=== PATIENT | male | born 1965 | race Caucasian/White ===

== ENCOUNTER → 2018-04-02 | Outpatient (CLI) | payer OTHER ==
[~2018-04-02] MED LIST: AMOXIL 875 MG875 M1 PO; BP MED; DEPO-TESTO100 MG/1 M; FLOMAX0.4 MG PO; LISINOPRIL20 MG PO; PERCOCET 5-3251 EACH PO; ULTRAM 50MG TAB50 MG PO; ZOFRAN ODT4 MG PO
--- NOTE | 2018-04-11 22:51 | SLEEP ---
[address] [address] SLEEP STUDY REPORT Name: ANAMIKATATYANA Fernández [id number] Admission: 04/02/18 Attend Phys: Dyana Benítez DO Discharge: Date of : 63 Report #: [id number] THIS REPORT FOR: //name// CC: Dyana Benítez DO This study has been reviewed in its entirety by a board certified sleep specialist DATE OF SERVICE: 04/02/2018 HOME SLEEP STUDY The patient is a 52-year-old who weighs 220 pounds and is 70 inches tall with a BMI of 31.6. The patient's [place] score was 10. The patient underwent home sleep study performed at [facility]. Total recording time was 469 minutes. During the night study, the patient had 191 obstructive apneas, 1 central and no mixed apneas. There were 43 hypopneas. The patient's apnea-hypopnea index was 30 per hour. Supine index was also 30 per hour. Nocturnal oximetry study revealed an average oxygen saturation of 90%, the lowest of 74%. 153 minutes were spent in an oxygen saturation of less than 90% and another 53 minutes with oxygen saturation of less than 85%. Mean heart rate was 72 beats per minute with a maximum of 97 beats per minute. IMPRESSION: 1. Severe sleep apnea-hypopnea syndrome at an AHI of 30 per hour. 2. Moderate to severe nocturnal hypoxia secondary to obstructive sleep apnea. RECOMMENDATION: 1. The patient would benefit from in-lab CPAP titration study. 2. Once optimal CPAP pressure is achieved, then follow up in 4-6 weeks to assess compliance for CPAP and to document clinical improvement. 3. Weight loss is strongly advised. 4. Avoid [employer] depressants. 5. Cautioned regarding driving until symptoms of sleep apnea resolve with the above recommendations. <ELECTRONICALLY SIGNED> By: Jeffrey Acevedo MD 04/11/18 2251 1638 [id number] Acevedo MD /nt
== END ==
LOC: M.SLEEPLAB 15:00
DX: G47.33 Obstructive sleep apnea (adult) (pediatric) (principal); R09.02 Hypoxemia; G47.00 Insomnia, unspecified; R53.83 Other fatigue

== ENCOUNTER 2019-09-30 17:33 | Emergency (ER) | payer OTHER ==
[~2019-09-30] VITALS: Ht 177.8 cm; Wt 99.8 kg
--- NOTE | ~2019-09-30 | PROC ---
[facility] [address] [place] [address] PROCEDURE REPORT Name: TATYANA WILLSON Room: [facility] MICHAEL Walton#: [id number] Admission: 09/30/19 Attend Phys: Discharge: 09/30/19 Date of : 63 Report #: [id number] THIS REPORT FOR: //name// cc: Dyana Benítez Maggie M. DO ~ THIS REPORT FOR: //name// For GI report, please see the Provation report in Perceptive 7 content. By: 0649Medical Records Staff MAURA /SHANNON
[2019-09-30 18:15] VITALS: BP 134/89
[2019-09-30 18:15] LABS: ABSOLUTE BASOPHILS 0.1 thou/uL (0.0-0.2); ABSOLUTE EOSINOPHILS 0.5 thou/uL (0.0-0.7); ABSOLUTE LYMPHOCYTES 1.4 thou/uL (0.8-5.3); ABSOLUTE MONOCYTES 0.6 thou/uL (0.0-1.2); ABSOLUTE NEUTROPHILS 3.6 thou/uL (1.6-8.1); BASOPHILS 1.4 %; EOSINOPHILS 8.3 %; HEMATOCRIT 46.9 % (42.0-52.0); HEMOGLOBIN 16.6 gm/dL (14.0-18.0); MCH 32.9 pg (26.0-34.0); MCHC 35.5 g/dL (28.0-37.0); MCV 92.8 fL (80.0-100.0); MONOCYTES 9.5 %; MPV 8.6 fl. (7.2-11.1); NUCLEATED RBCS 0 /100WBC; PLATELET COUNT* 226 thou/uL (150-400); POLYS 57.8 %; RBC 5.06 mil/uL (4.50-6.00); RDW-CV 13.2 % (10.5-14.5); WBC 6.2 thou/uL (4.0-11.0)
[2019-09-30 18:24] LABS: CALCIUM 9.2 mg/dL (8.5-10.1); CREATININE 1.3 mg/dL (0.6-1.3)
[2019-09-30 18:29] LABS: ALBUMIN 4.6 g/dL (3.4-5.0); TOTAL BILIRUBIN 0.9 mg/dL (<0.1-1.0); TOTAL PROTEIN 8.1 g/dL (6.4-8.2)
--- NOTE | 2019-10-01 10:13 | EKG ---
[place] [address] ELECTROCARDIOGRAM REPORT Name: RAJIV WILLSON [facility]#: [id number] Admission: 09/30/19 Attend Phys: Discharge: 09/30/19 Date of : 63 Date of Service: 09/30/191807 Report #: [id number] THIS REPORT FOR: //name// [facility] ED Test Date: 2019-09-30 Test Time: 18:08:43 Pat Name: RAJIV WILLSON Department: Room: Gender: Buggy Ladle Tender: : 1965 Requested By: Kaushik Briggs Order Number: [id number] MD: Rajiv Nicholas Measurements Intervals [place] Rate: 70 P: 54 MO: 150 QRS: 30 QRSD: 95 T: 20 QT: 379 QTc: 409 Interpretive Statements Sinus rhythm No previous ECG available for comparison Electronically Signed On 10-01-2019 10:11:00 CDT by Rajiv Nicholas [email or web address] <ELECTRONICALLY SIGNED> By: Rajiv Nicholas MD, [facility] 10/01/19 1011 1808 1808 Rajiv Nicholas MD, FACC /EPI
--- NOTE | 2019-10-02 15:09 | PATH ---
[facility] [address] [place] [address] PATHOLOGY RPT PROCEDURE Name: TATYANA WILLSON Room: [facility] MICHAEL Walton#: [id number] Admission: 09/30/19 Date of : 63 Discharge: 09/30/19 Report #: [id number] Path Case #: [id number] [facility] Accession Number: [id number] . 01 Material submitted: . esophagus - ESOPHAGEAL BIOPSY . 01 Clinical history: . food bolus, food stuck in throat . 02 Diagnosis: Esophageal biopsy: - Typical of eosinophilic (allergic) esophagitis. See comment. [facility] 10/02/2019 1333 Local . 02 Comment: The biopsies show benign esophageal mucosa with the typical features of eosinophilic esophagitis including prominent basilar cell hyperplasia and an eosinophilic infiltrate averaging greater than 30 per high power field. ([facility]/db; 10/02/2019) . 02 Electronically signed: . Yosi Mejia MD, Pathologist NPI- [id number] . 01 Gross description: . . The specimen is received in formalin, labeled "Tatyana Willson, esophageal biopsy rule out EOE" and consists of multiple fragments of white tissue measuring 0.4 x 0.3 x 0.2 cm in aggregate which are entirely submitted in A1. ([facility]; 10/01/2019) JFQ/JFQ 10/01/2019 1803 Local . 02 Pathologist provided ICD-10: K22.9 . 02 CPT . 559775 Specimen Comment: A courtesy copy of this report has been sent to [phone], [phone] Specimen Comment: [phone], Specimen Comment: Report sent to ,DR PABLO / DR BRADLEY Performed at: [address] [id number] MD Hayden Ye MD Phone: [phone] Performed at: [address] [place] [address] PATHOLOGY RPT PROCEDURE Name: TATYANA WILLSON [facility] [id number] Admission: 09/30/19 Date of : 63 Discharge: 09/30/19 Report #: [id number] Path Case #: [id number] [address] [id number] MD Yosi Mejia MD Phone: [phone]
--- NOTE | 2019-11-02 08:28 | CON ---
[address] [address] CONSULTATION Name: TATYANA WILLSON [id number] Admission: 09/30/19 Attend Phys: Discharge: 09/30/19 Date of : 63 Report #: [id number] THIS REPORT FOR: //name// cc: Dyana Benítez Maggie M. DO ~ THIS REPORT FOR: //name// CC: Dyana Benítez Elvis Ford Stephendaranchoi DATE OF SERVICE: 09/30/2019 HISTORY OF PRESENT ILLNESS: This is a pleasant 53-year-old gentleman with past medical history significant for hypertension, was presenting with food bolus impaction. The patient reports food bolus was impacted since last night. He has been unable to swallow solids or liquids since then. The patient reports intermittent episodes of dysphagia for the last few months, but denies prior episodes of food bolus impactions. PAST MEDICAL HISTORY: Hypertension. PAST SURGICAL HISTORY: None. SOCIAL HISTORY: The patient denies smoking or recreational drug use. He takes alcohol intermittently. FAMILY HISTORY: No family history of colon cancer or [place]-related neoplasia. REVIEW OF SYSTEMS: Comprehensive 10-point review of systems is negative except for what was mentioned in the HPI. PHYSICAL EXAMINATION: GENERAL: The patient is alert, awake, oriented x 3. HEENT: Pupils are equal, round, reactive to light and accommodation. Mucous membranes are moist. There is no congestion. LUNGS: Clear to auscultation bilaterally. CARDIOVASCULAR: Rate and rhythm regular, S1, S2 present. ABDOMEN: Soft. There is no distention, guarding or rigidity. EXTREMITIES: Warm, well perfused. There is no edema. SKIN: Warm and dry. LABORATORY DATA: Not relevant. ASSESSMENT AND PLAN: A pleasant 53-year-old [place] [address] CONSULTATION Name: TATYANA WILLSON Room: [facility]#: [id number] Admission: 09/30/19 Attend Phys: Discharge: 09/30/19 Date of : 63 Report #: [id number] bolus impaction. We will proceed with EGD and make further recommendations based on results of EGD. <ELECTRONICALLY SIGNED> By: Logan Spencer MD 11/02/19 0828 1836 [id number] Spencer MD /nt
== END 2019-09-30 18:15 | disposition still patient (30) ==
LOC: M.ERS 17:33 → M.SUR 17:33 → M.ERS 18:15
PROVIDERS: Physician Assistant
DX: T18.128A Food in esophagus causing other injury, initial encounter (principal); X58.XXXA Exposure to other specified factors, initial encounter; Y93.89 Activity, other specified; Y92.89 Other specified places as the place of occurrence of the external cause; Y99.8 Other external cause status